=== PATIENT | female | born 1950 | race Two or more races ===

== ENCOUNTER 2018-10-01 13:24 | Emergency (ER) | payer SELFPAY ==
[~2018-10-01] VITALS: Ht 162.6 cm; Wt 54.5 kg
[2018-10-01 13:29] VITALS: BP 125/70
== END 2018-10-01 14:40 | disposition left against medical advice (07) ==
LOC: EMS 13:26
DX: M25.532 Pain in left wrist (principal); Z53.21 Procedure and treatment not carried out due to patient leaving prior to being seen by health care provider